=== PATIENT | male | born 1965 | race Caucasian/White ===

== ENCOUNTER 2017-05-04 09:47 | Observation (INO) | payer OTHER ==
[~2017-05-04] VITALS: Ht 172.7 cm; Wt 86.5 kg
--- NOTE | ~2017-05-04 | FD ---
ADMIT: 05/04/2017 RM/LOC: 428 [facility] MR#: [id number] [address] [id number] LISA SANCHEZ [address] [place] [address] Final Diagnosis SEX: M AGE: 51 : 1965 ADMISSION DATE: 05/04/2017 DISCHARGE DATE: 05/05/2017 DISCHARGE DIAGNOSES: 1. Anginal chest pain resolved with negative treadmill Cardiolite exercise stress testing. 2. Family history of heart disease. 3. Poorly controlled diabetes mellitus type 2. 4. Hyperlipidemia. 5. Obesity. Ajay Mejias MD/ don JOB #: [id number] CC: Ajay Mejias MD, Attending Physician Ajay Mejias MD, Family Physician
--- NOTE | ~2017-05-04 | CST ---
Cardiac Perfusion Imaging Demographics Patient Name DANIEL Seaman Gender Male Patient Number [id number] Race Visit Number [id number] Ethnicity [employer] ID Room Number 428 Accession Number [id number] Height Date of 1965 Weight Age 51 year(s) BSA Referring Physician Randell Galaviz MD BMI Interpreting Physician King Harsh Sanches MD Date of study 05/05/2017 Supervising /MLP King Harsh Sanches MD NM Technologist Tanya Oconnor Ordering Physician Randell Galaviz MD Stress [facility] pressure testing technician Stress ECG Reading King Harsh Sanches MD Nurse Mark Baeza Physician The procedure was explained in detail to the patient. Risks, complications and alternative treatments were reviewed. Written consent was obtained. Medications Reviewed with Patient prior to Procedure. Procedure Procedure Type: Nuclear Stress Test:Exercise, Cardiac Study SF Procedure Start time: 05/05/2017 08:00 Indications: Chest pain. Risk Factors The patient risk factors include:treated hypercholesterolemia, family history of premature CAD, orally-treated diabetes mellitus and dyslipidemia. Conclusions Summary Perfusion Images: The overall quality of the study is good. Left ventricular cavity is noted to be normal on the stress and rest studies. There is no evidence of abnormal lung activity. The right ventricle is not visualized and cannot be assessed. Stress SPECT images demonstrate homogenous tracer distribution throughout the myocardium. Rest SPECT images demonstrate homogenous tracer distribution throughout the myocardium. Gated SPECT imaging reveals normal myocardial thickening and wall motion. The left ventricular ejection fraction was calculated to be 66%. Impression ECG portion of stress test is clinically negative for ischemia by diagnostic criteria. Myocardial perfusion imaging is normal. Overall left ventricular systolic function was normal without regional wall motion abnormalities. There are no previous studies for comparison. Stress Protocols Resting ECG Normal sinus rhythm. Resting HR:55 bpm Resting BP:98/72 mmHg Stress Protocol:Exercise Predicted HR: 167 bpm ECG Findings Normal sinus rhythm. Sinus tachycardia. Complications Procedure complication: None. Stress Interpretation Appropriate hemodynamic response to exercise. No significant ST-T wave changes with exercise. EKG portion is negative for ischemia by diagnostic criteria. The Hernandez Treadmill score was 9 .This corresponds to a low risk stress test. Imaging Results Summed scores - Summed stress score: 0 - Summed rest score: 0 - Summed difference score: 0 Stress ejection Ejection fraction:67 % EDV :111 ml ESV :37 ml Stroke volume :74 ml LV mass :145 gr Imaging Protocols Rest Stress Isotope:Tc99m Myoview IV Isotope: Tc99m Myoview IV Isotope dose:10.1 mCi Isotope dose:31.6 mCi Date:05/05/2017 06:30 Date:05/05/2017 08:00 Technique: SPECT Technique: Gated Supine SPECT Supine IV remains in place after procedure. Scan Time:45-60 minutes post Scan Time:15-30 minutes post injection injection Medical History Admission Data Admission date: 05/04/2017 Admission Time: 09:47 Hospital Status: Inpatient. Signatures
[2017-05-06] MEDS ORDERED: METFORMIN HCL1000 M1 PO (12:12)
[2017-05-06] MEDS ORDERED: FARXIGA10 MG PO (12:13)
[2017-05-06] MEDS ORDERED: PRAVACHOL40 MG PO (12:13)
[2017-05-06] MEDS ORDERED: ASPIRIN EC81 MG PO (12:13)
== END 2017-05-05 13:00 | disposition home or self-care (01) ==
LOC: 4PCU 09:47
PROVIDERS: ADMIT Internal Medicine
DX: R07.9 Chest pain, unspecified (principal); E11.65 Type 2 diabetes mellitus with hyperglycemia; E78.5 Hyperlipidemia, unspecified; Z90.49 Acquired absence of other specified parts of digestive tract; G25.81 Restless legs syndrome; E66.9 Obesity, unspecified; M17.0 Bilateral primary osteoarthritis of knee; K21.9 Gastro-esophageal reflux disease without esophagitis; Z79.82 Long term (current) use of aspirin; Z88.8 Allergy status to other drugs, medicaments and biological substances